=== PATIENT | male | born 1980 | race Hispanic/Latino ===

== ENCOUNTER 2018-06-06 21:43 | Inpatient (IN) | payer MEDICARE ==
--- NOTE | 2018-06-06 23:34 | C.PDOC ---
History Of Present Illness 37 year old male, whose past medical history includes anxiety and polysubstance abuse, is brought to the ED by his brother for psychiatric evaluation. Patient admits he has been using heroin, cocaine and alcohol. After patient's recently left him, he called his brother and expressed suicidal ideation. Patient appears to be agitated and aggressive in the ED. He denies any medical complaints at this time. Patient does not have history of psychiatric admissions. Time Seen by Provider: 06/06/18 22:04 Chief Complaint (Nursing): Psychiatric Evaluation History Per: Patient, Family (brother) History/Exam Limitations: no limitations Onset/Duration Of Symptoms: Hrs Current Symptoms Are (Timing): Still Present Suicide/Self Injury Attempted (Context): None Modifying Factor(s): Alcohol, Narcotics (heroin ), Cocaine Associated Symptoms: Suicidal Thoughts Involuntary Hold By: None Recent travel outside of the [place]: No Additional History Per: Patient Past Medical History Reviewed: Historical Data, Nursing Documentation, Vital Signs Vital Signs: Last Vital Signs Temp 97.9 F 06/06/18 21:47 Pulse 94 H 06/06/18 21:47 Resp 16 06/06/18 21:47 BP 159/110 H 06/06/18 21:47 Pulse Ox 100 06/06/18 21:47 - Medical History PMH: Anxiety, Gastritis, HTN Surgical History: No Surg Hx Family History: States: Unknown Family Hx - Social History Hx Alcohol Use: Yes Hx Substance Use: Yes - Immunization History Hx Tetanus Toxoid Vaccination: No Hx Influenza Vaccination: No Hx Pneumococcal Vaccination: No Review Of Systems Psych: Positive for: Suicidal ideation Physical Exam - Physical Exam Appears: Non-toxic, No Acute Distress, Other (agitated, aggressive, and tense ) Skin: Normal Color, Warm, Dry Head: Atraumatic, Normacephalic Neck: Normal ROM Chest: Symmetrical, No Deformity Extremity: Normal ROM Neurological/Psych: Normal Speech, Normal Cognition ED Course And Treatment O2 Sat by Pulse Oximetry: 100 (on RA) Pulse Ox Interpretation: Normal Medical Decision Making Medical Decision Making: Impression: 37 year old male for psychiatric evaluation of suicidal ideation Plan: * bloodwork * urinalysis * Ativan PO * 1:1 observation * crisis evaluation * reassess and disposition Progress: Bloodwork and urinalysis ordered and reviewed. Ativan PO given. Patient placed on one-to-one ED observation and is pending crisis evaluation. Disposition Counseled Patient/Family Regarding: Studies Performed, Diagnosis - Disposition Disposition: HOME/ ROUTINE Disposition Time: 23:42 Condition: GUARDED Forms: [facility] (Slovak) - Clinical Impression Clinical Impression: Polysubstance abuse - Scribe Statement The provider has reviewed the documentation as recorded by the Scribe (Alison Mendez) Provider Attestation: All medical record entries made by the Scribe were at my direction and personally dictated by me. I have reviewed the chart and agree that the record accurately reflects my personal performance of the history, physical exam, medical decision making, and the department course for this patient. I have also personally directed, reviewed, and agree with the discharge instructions and disposition. Physician Patient Turnover Patient Signed Over To: Jabari Basilio Handoff Comments: pending crisis evaluation and disposition
[2018-06-06 23:43] LABS: URINE BILIRUBIN NEGATIVE (NEGATIVE); URINE BLOOD NEGATIVE (NEGATIVE); URINE CLARITY Clear (Clear); URINE COLOR Yellow (YELLOW); URINE GLUCOSE (UA) NORMAL (Normal); URINE LEUKOCYTE ESTERASE NEG Leu/uL (Negative); URINE PROTEIN NEGATIVE (NEGATIVE); URINE UROBILINOGEN NORMAL mg/dL (0.2-1.0)
[2018-06-06 23:57] LABS: BARBITURATES, UR NEGATIVE (NEGATIVE); BENZODIAZEPINES, UR NEGATIVE (NEGATIVE); PHENCYCLIDINE, UR NEGATIVE (NEGATIVE)
[2018-06-06 23:58] LABS: OPIATES, UR POSITIVE (NEGATIVE)
[2018-06-07 00:48] LABS: BASO % 0.6 % (0.0-2.0); EOS # 0.4 K/uL (0.0-0.7); EOS % 6.4 % (0.0-4.0); HEMOGLOBIN 12.6 g/dL (12.0-18.0); LYMPH # 2.4 K/uL (1.0-4.3); LYMPH % 41.7 % (20.0-40.0); MEAN CELL VOLUME 89.1 fL (80.0-94.0); MEAN CORPUSCULAR HEMOGLOBIN 30.4 pg (27.0-31.0); MEAN CORPUSCULAR HGB CONC 34.1 g/dL (33.0-37.0); MEAN PLATELET VOLUME 6.8 fL (7.2-11.7); MONO # 0.3 K/uL (0.0-0.8); MONO % 5.5 % (0.0-10.0); NEUT # 2.7 K/uL (1.8-7.0); NEUT % 45.8 % (50.0-75.0); NRBC % 0.1 % (0.0-2.0); RBC 4.14 Mil/uL (4.40-5.90); RED CELL DISTRIBUTION WIDTH 13.1 % (11.5-14.5); WHITE BLOOD COUNT 5.8 K/uL (4.8-10.8)
[2018-06-07 01:01] LABS: ALB/GLOB RATIO 1.3 (1.0-2.1); ALBUMIN 3.7 g/dL (3.5-5.0); ALT/SGPT 127 U/L (21-72); AST/SGOT 113 U/L (17-59); BLOOD UREA NITROGEN 16 mg/dL (9-20); CALCIUM 8.2 mg/dl (8.6-10.4); GFR NON-AFRICAN AMERICAN > 60
[2018-06-07 02:54] VITALS: O2SAT 98
--- NOTE | 2018-06-07 06:17 | PCM.BM ---
<Parrish Baptiste Liana - Last Filed: 06/07/18 06:14> Treatment Plan Problems - Problems identified on initial assessmt Altered Health Maintenance Date Initiated: 06/07/18 Time Initiated: 03:00 Assessment reference: NA Status: Active Ineffective Coping Date Initiated: 06/07/18 Time Initiated: 03:00 Assessment reference: NA Status: Active Treatment assets and liabiliti Patient Assests: adapts well, cooperative, ADL independent, negotiates basic needs, cognitively intact Patient Liabilities: relationship conflicts, substance abuse - Milieu Protocol Maintain good personal hygiene: daily Encourage regular showers, daily Remind patient to perform daily oral care, daily Assist patient to perform ADL's Conduct patient checks and document Observation sheet: Q15 minutes Maintain personal safety: every shift Educate patient to report safety concerns to staff, every shift Monitor environment for contraband/sharps Medication safety: Monitor for expected outcome, potential side effects: every shift, Assess barriers to learning: every shift, Assess readiness for medication education: every shift <Rosalina Jose - Last Filed: 06/07/18 13:12> Family Contact Family involvement: Family/SO is involved Family contact: Patient declines to allow family contact at present - Goals for Treatment Patient goals for treatment: "I need to go back to my AA Meetings." Discharge/Continuing Care - Education Needs Education Needs: Patient Medication, Patient Coping Skills - Discharge Discharge Criteria: Tolerates medication w/o severe side effects, Reduction of target symptoms Discharge to:: Home, With Family - Treatment Team Participation Discussed with Family/SO: No Was Patient/Family/SO present at Treatment Team Meeting: Yes <Ebonie Mckoy - Last Filed: 06/09/18 13:26> - Diagnosis (1) MDD (major depressive disorder), recurrent severe, without psychosis Status: Acute Interventions: 06/09/18 13:25 * Assess/adjust medications daily and /or as needed * See patient on an individual basis 7x/week to assess symptoms of depression * Monitor for side effects & effectiveness of medications * (2) Alcohol use disorder, severe, dependence Status: Acute Interventions: 06/09/18 13:26 * Assess 7x/week regarding severity of withdrawal * Educate regarding risks, benefits, side effects and alternatives of medications * Use Motivational Interviewing for abstinence * Use CBT for relapse prevention * Medication management for withdrawal symptoms * Encourage medication assisted treatment *
--- NOTE | 2018-06-07 10:05 | PCM.PSYCH ---
Initial Psychiatric Evaluation - Initial Psychiatric Evaluation Type of Admission: Voluntary Legal Status: Capacity Chief Complaint (in patient's own words): I was feeling depressed and suicidal History of Present Illness and Precipitating Events: Patient is a 37-year-old , unemployed white male who lives at home with his and son, came to the hospital because of depressed mood, alcohol abuse and suicidal ideation. The patient states that he had his first drink at the age of 12 but it became a problem for him starting a couple years ago. The patient states that his longest sobriety was 30 days, until he relapsed 3 days ago. The patient has been drinking 3-5 pints of vodka per day over the last 3 days, with his last drink last night around midnight. The patient also has a history of heroin use, which he started using infrequently 15 years ago. The patient states that he only uses heroin occasionally, with his last use 3 days ago when he used 4 bags IV. The patient denies any cocaine, marijuana, or other drug use but smokes 1 pack per day for a couple years. The patient states that yesterday he consumed more than 3 pints of vodka, became acutely depressed and developed suicidal ideation, so does wake him to the hospital to get help. He has been to detox and rehab a lot and likes to attend AA meetings. The patient states that his grandparents were heavy drinkers and that he witnessed his brother overdose on heroin. The patient sees a psychiatrist, Dr. Sutton, outpatient with his last visit one month ago. The patient is prescribed Vyvanse 70 mg per day to help with his alcohol cravings, with his last dose yesterday morning. The patient is also taking two and a half doses of 8 mg Subutex daily and denies any previous psychiatric hospitalizations. He reports depressed mood, feelings of hopelessness and helplessness, poor sleep and poor appetite. He reports withdrawal symptoms from drinking including shakes, sweating, headaches, anxiety and nausea. He denies any auditory hallucinations or any visual hallucinations or any paranoia. Past Psych History: denies Past Medical History: HTN Family Psych History: denies Past Psychiatric History - Past Psychiatric History Previous Treatment History: Inpatient Pertinent Medical Hx (Current Medical&Sleep Prob, Allergies): Allergies Allergy/AdvReac Type Severity Reaction Status Date / Time No Known Allergies Allergy Verified 06/06/18 21:55 Alprazolam 2 mg PO QID PRN 06/06/18 Esomeprazole Magnesium [Nexium] 40 mg PO DAILY 06/06/18 Losartan Potassium 25 mg PO DAILY 06/06/18 Meloxicam 15 mg PO DAILY 06/06/18 Review of Systems - Review of Systems All systems: reviewed and no additional remarkable complaints except - Psychiatric Psychiatric: Anxiety, Depression, Irritability, Suicidal Ideation Mental Status Examination - Personal Presentation Personal Presentation: Looks stated age - Affect Affect: Constricted, Depressed - Motor Activity Motor Activity: Calm - Reliability in Providing Information Reliability in Providing Information: Fair - Speech Speech: Organized - Mood Mood: Depressed, Anxious - Formal Thought Process Formal Thought Process: No Impairment - Obsessions/Compulsions Obsessions: No Compulsions: No - Cognitive Functions Orientation: Person, Place, Situation, Time Sensorium: Alert Attention/Concentration: Attentive Abstract Thinking: [place] Estimate of Intelligence: Below average Judgement: Imparied, as evidence by: Poor judgement, Imparied, as evidence by: Lack of insight into illness - Risk Risk: Suicidal, Withdrawal, Diminished functioning - Strength & Assets Inventory Strength & Assets Inventory: Family support DSM 5 DX - DSM 5 DSM 5 Diagnosis: Major depressive disorder recurrent severe without psychotic features Alcohol use disorder severe Alcohol withdrawal Opioid use disorder severe on agonist therapy History of ADHD - Recommended/Plan of Treatment Treatment Recommendations and Plan of Treatment: Major depressive disorder recurrent severe without psychotic features Alcohol use disorder severe Alcohol withdrawal Opioid use disorder severe on agonist therapy History of ADHD CBT Psychoeducation Supportive therapy and group therapy Start Ativan taper As needed medications Trazodone 50 mg p.o. nightly Neurontin 300 mg p.o. 3 times daily Wellbutrin 75 mg p.o. daily Subutex 8 mg SL twice a day - Smoking Cessation Smoking Cessation Initiated: No
[2018-06-07] MEDS ORDERED: Aluminum Hydroxide/Magnesium Hydroxide Susp (30 mL) PO PRN (10:13)
[2018-06-07] MEDS: Multiple Vitamins Tab PO SCH (10:44)
[2018-06-07] MEDS: Pantoprazole 40 mg EC Tab PO SCH (10:44)
[2018-06-07] MEDS: Buprenorphine Hydrochloride 8 mg SL SCH (17:53)
[2018-06-08 06:33] VITALS: RESP 20
[2018-06-08] MEDS: Multiple Vitamins Tab PO SCH (10:13)
[2018-06-08] MEDS: Buprenorphine Hydrochloride 8 mg SL SCH ×2 (10:13→18:33)
[2018-06-08] MEDS: Pantoprazole 40 mg EC Tab PO SCH (10:13)
--- NOTE | 2018-06-08 10:27 | PCM.PYCHPN ---
Psychiatric Progress Note - Psychiatric Progress Note Patient seen today, length of contact: 15 min Patient Chief Complaint: I was feeling depressed and suicidal Medication Change: Yes Medical Record Reviewed: Yes Mental Status Examination - Cognitive Function Orientation: Person, Place, Situation, Time Memory: Intact Attention: WNL Concentration: Poor Association: WNL Fund of Knowledge: Poor - Mood Mood: Depressed, Anxious - Affect Affect: Constricted, Depressed - Speech Speech: Soft - Formal Thought Process Formal Thought Process: No Impairment - Suicidal Ideation Suicidal Ideation: No - Homicidal Ideation Homicidal Ideation: No Goal/Treatment Plan - Goal/Treatment Plan Need for Continued Stay: Discharge may exacerbated symptoms, Severe functional impairment Progress Toward Problem(s) and Goals/Treatment Plan: Major depressive disorder recurrent severe without psychotic features Alcohol use disorder severe Alcohol withdrawal Opioid use disorder severe on agonist therapy History of ADHD CBT Psychoeducation Supportive therapy and group therapy Start Ativan taper As needed medications Trazodone 50 mg p.o. nightly Neurontin 300 mg p.o. 3 times daily Wellbutrin 75 mg p.o. daily Subutex 8 mg SL twice a day
[2018-06-09 06:16] VITALS: BP 119/74; PULSE 64; TEMP 98.2
[2018-06-09] MEDS: Pantoprazole 40 mg EC Tab PO SCH (10:35)
[2018-06-09] MEDS: Multiple Vitamins Tab PO SCH (10:35)
[2018-06-09] MEDS: Buprenorphine Hydrochloride 8 mg SL SCH (10:35)
--- NOTE | 2018-06-09 10:37 | PCM.PYCHDC ---
Mental Status Examination - Mental Status Examination Orientation: Person, Place, Situation, Time Memory: Intact Mood: Neutral Affect: Constricted Speech: Soft Attention: WNL Concentration: WNL Association: WNL Fund of Knowledge: WNL Formal Thought Process: No Impairment Description of patient's judgement and insight: good, fair Psychotic Thoughts and Behaviors: denies of AV Suicidal Ideation: No Current Homicidal Ideation?: No Discharge Summary - Discharge Note Reason for Hospitalization: Patient is a 37-year-old , unemployed white male who lives at home with his and son, came to the hospital because of depressed mood, alcohol abuse and suicidal ideation. The patient states that he had his first drink at the age of 12 but it became a problem for him starting a couple years ago. The patient states that his longest sobriety was 30 days, until he relapsed 3 days ago. The patient has been drinking 3-5 pints of vodka per day over the last 3 days, with his last drink last night around midnight. The patient also has a history of heroin use, which he started using infrequently 15 years ago. The patient states that he only uses heroin occasionally, with his last use 3 days ago when he used 4 bags IV. The patient denies any cocaine, marijuana, or other drug use but smokes 1 pack per day for a couple years. The patient states that yesterday he consumed more than 3 pints of vodka, became acutely depressed and developed suicidal ideation, so does wake him to the hospital to get help. He has been to detox and rehab a lot and likes to attend AA meetings. The patient states that his grandparents were heavy drinkers and that he witnessed his brother overdose on heroin. The patient sees a psychiatrist, Dr. Sutton, outpatient with his last visit one month ago. The patient is prescribed Vyvanse 70 mg per day to help with his alcohol cravings, with his last dose yesterday morning. The patient is also taking two and a half doses of 8 mg Subutex daily and denies any previous psychiatric hospitalizations. He reports depressed mood, feelings of hopelessness and helplessness, poor sleep and poor appetite. He reports withdrawal symptoms from drinking including shakes, sweating, headaches, anxiety and nausea. He denies any auditory hallucinations or any visual hallucinations or any paranoia. Consultations:: List each consultation separately and include: 1. Reason for request. 2. Findings. 3. Follow-up Summary of Hospital Course include:: 1. Description of specific treatment plan utilized for patients during their course of treatmen. 2. Summarize the time- course for resolution of acute symptoms and/or regressed behaviors. 3. Describe issues identified and worked on during hospitalization. 4. Describe medication utilized. 5. Describe medical problems identified and treated. 6. Reassessment of suicide risk Summary of Hospital Course: Patient is a 37-year-old , unemployed white male who lives at home with his and son, came to the hospital because of depressed mood, alcohol abuse and suicidal ideation. The patient states that he had his first drink at the age of 12 but it became a problem for him starting a couple years ago. The patient states that his longest sobriety was 30 days, until he relapsed 3 days ago. The patient has been drinking 3-5 pints of vodka per day over the last 3 days, with his last drink last night around midnight. The patient also has a history of heroin use, which he started using infrequently 15 years ago. The patient states that he only uses heroin occasionally, with his last use 3 days ago when he used 4 bags IV. The patient denies any cocaine, marijuana, or other drug use but smokes 1 pack per day for a couple years. The patient states that yesterday he consumed more than 3 pints of vodka, became acutely depressed and developed suicidal ideation, so does wake him to the hospital to get help. He has been to detox and rehab a lot and likes to attend AA meetings. The patient states that his grandparents were heavy drinkers and that he witnessed his brother overdose on heroin. The patient sees a psychiatrist, Dr. Sutton, outpatient with his last visit one month ago. The patient is prescribed Vyvanse 70 mg per day to help with his alcohol cravings, with his last dose yesterday morning. The patient is also taking two and a half doses of 8 mg Subutex daily and denies any previous psychiatric hospitalizations. He reports depressed mood, feelings of hopelessness and helplessness, poor sleep and poor appetite. He reports withdrawal symptoms from drinking including shakes, sweating, headaches, anxiety and nausea. He denies any auditory hallucinations or any visual hallucinations or any paranoia. Past Psych History: denies Past Medical History: HTN Family Psych History: denies - Final Diagnosis (DSM 5) Condition upon Discharge: FAIR DSM 5: Major depressive disorder recurrent severe without psychotic features Alcohol use disorder severe Alcohol withdrawal Opioid use disorder severe on agonist therapy History of ADHD Disposition: HOME/ ROUTINE Follow-up Treatment Plan: Major depressive disorder recurrent severe without psychotic features Alcohol use disorder severe Alcohol withdrawal Opioid use disorder severe on agonist therapy History of ADHD CBT Psychoeducation Supportive therapy and group therapy Start Ativan taper As needed medications Trazodone 50 mg p.o. nightly Neurontin 300 mg p.o. 3 times daily Wellbutrin 75 mg p.o. daily Subutex 8 mg SL twice a day Prescriptions/Medication Reconciliation: buPROPion [Wellbutrin] 75 mg PO DAILY #30 tab Losartan [Cozaar] 25 mg PO DAILY #30 tab traZODone [Desyrel] 50 mg PO HS PRN #30 tab PRN Reason: Insomnia - Smoking Cessation Smoking Cessation Medication prescribed: No - Antipsychotic Medications Pt discharged on 2 or more routine antipsychotic medications: No
== END 2018-06-09 11:00 | disposition home or self-care (01) | DRG 885 ==
LOC: C.ER 21:43 → EEVIPCON 21:43 → C.5E 06-07 02:21
PROC: GZ3ZZZZ Medication Management (ICD-10-PCS; principal; 2018-06-07)
PROC: GZHZZZZ Group Psychotherapy (ICD-10-PCS; 2018-06-07)
PROC: HZ89ZZZ Medication Management for Substance Abuse Treatment, Other Replacement Medication (ICD-10-PCS; 2018-06-07)
PROC: GZ56ZZZ Individual Psychotherapy, Supportive (ICD-10-PCS; 2018-06-07)
DX: F33.2 Major depressive disorder, recurrent severe without psychotic features (principal); F10.239 Alcohol dependence with withdrawal, unspecified; R45.851 Suicidal ideations; F17.210 Nicotine dependence, cigarettes, uncomplicated; F11.21 Opioid dependence, in remission; F41.9 Anxiety disorder, unspecified; F90.9 Attention-deficit hyperactivity disorder, unspecified type; I10 Essential (primary) hypertension

== ENCOUNTER 2018-08-17 13:20 | Inpatient (IN) | payer MEDICARE ==
--- NOTE | 2018-08-17 14:04 | C.PDOC ---
History Of Present Illness 37 year old male with history of alcohol abuse, anxiety, HTN, presents to ED requesting detox from alcohol. He states that he drank 4 pints of liquor today. His only complaint is his chronic back pain and mild nausea. He denies any other drug use, suicidal ideation, homicidal ideation, hallucinations, seizures, tremors, chest pain, SOB, dizziness, vision changes, abdominal pain, vomiting, headache, or any other associated complaints. Time Seen by Provider: 08/17/18 13:30 Chief Complaint (Nursing): Substance Abuse History Per: Patient History/Exam Limitations: no limitations Modifying Factor(s): Alcohol Associated Symptoms: denies: Suicidal Thoughts, Suicidal Plan Past Medical History Reviewed: Historical Data, Nursing Documentation, Vital Signs Vital Signs: Last Vital Signs Temp 98.5 F 08/17/18 13:35 Pulse 107 H 08/17/18 13:35 Resp 20 08/17/18 13:35 BP 141/91 H 08/17/18 13:35 Pulse Ox 95 08/17/18 13:35 - Medical History PMH: Anxiety, Gastritis, HTN (Possibly due to drinking), Seizures (Has seizures related to alcohol use) Denies: Diabetes, Hepatitis (Treated recently), HIV, Sexually Transmitted Disease - [facility] GROUP PSYCHOTHERAPY (06/07/18) INDIVIDUAL PSYCHOTHERAPY, SUPPORTIVE (06/07/18) MEDICATION MANAGEMENT (06/07/18) MEDS MGMT FOR SUBSTANCE ABUSE TREATMENT, OTH REPL MED (06/07/18) Family History: States: Unknown Family Hx - Social History Hx Alcohol Use: Yes (BAL 298) Hx Substance Use: Yes - Immunization History Hx Tetanus Toxoid Vaccination: No Hx Influenza Vaccination: No Hx Pneumococcal Vaccination: No Review Of Systems Constitutional: Negative for: Fever, Chills, Weakness Eyes: Negative for: Vision Change ENT: Negative for: Nose Congestion Cardiovascular: Negative for: Chest Pain, Palpitations, Light Headedness Respiratory: Negative for: Cough, Shortness of Breath Gastrointestinal: Positive for: Nausea. Negative for: Vomiting, Abdominal Pain Musculoskeletal: Positive for: Back Pain (chronic back pain) Skin: Negative for: Rash Neurological: Negative for: Weakness, Numbness, Seizures, Headache, Dizziness Physical Exam - Physical Exam Appears: Non-toxic, No Acute Distress, Other (Appears intoxicated) Skin: Normal Color, Warm, Dry Head: Atraumatic, Normacephalic Eye(s): bilateral: Normal Inspection, PERRL, EOMI Nose: Normal Oral Mucosa: Moist Neck: Normal ROM, Supple Chest: Symmetrical, No Deformity Cardiovascular: Rhythm Regular, No Murmur Respiratory: Normal Breath Sounds, No Accessory Muscle Use Gastrointestinal/Abdominal: Soft, No Tenderness Back: No CVA Tenderness, Other (old surgical scar over the mid-lower back, tender to palpation; no signs of infection) Extremity: Normal ROM, Capillary Refill (<2 seconds) Extremity: Bilateral: Atraumatic, Normal Color And Temperature Pulses: Left Radial: Normal, Right Radial: Normal Neurological/Psych: Oriented x3, Normal Speech, Normal Motor, Normal Sensation Gait: Steady ED Course And Treatment - Laboratory Results Result Diagrams: 08/17/18 14:35 08/17/18 14:35 O2 Sat by Pulse Oximetry: 95 (RA) Medical Decision Making Medical Decision Making: Initial Plan: Bloodwork with alcohol, acetaminophen, salicylate levels UA UDS 1720 Patient vomiting, requesting librium. Discussed with ED attending Dr. Imm. Chata mora and Librium ordered. 1730 Bloodwork, UA, UDS reviewed Patient is clinically sober and medically stable for detox admission 1745 Advised by crisis team that patient is to be admitted to detox unit under Dr. Rowe with diagnosis of alcohol use disorder, severe Disposition - Disposition Disposition: HOSPITALIZED Disposition Time: 17:30 Condition: STABLE - Clinical Impression Clinical Impression: Alcohol use disorder, severe, dependence - PA / CAN SEALER / Resident Statement MD/DO has reviewed & agrees with the documentation as recorded. (Gretel Merchant) - Scribe Statement The provider has reviewed the documentation as recorded by the Scribe (Gretel Merchant) All medical record entries made by the Scribe were at my direction and personally dictated by me. I have reviewed the chart and agree that the record accurately reflects my personal performance of the history, physical exam, medical decision making, and the department course for this patient. I have also personally directed, reviewed, and agree with the discharge instructions and disposition.
[2018-08-17 14:47] LABS: BASO # 0.1 K/uL (0.0-0.2); BASO % 0.7 % (0.0-2.0); EOS # 0.2 K/uL (0.0-0.7); EOS % 2.5 % (0.0-4.0); HEMOGLOBIN 14.2 g/dL (12.0-18.0); LYMPH # 2.5 K/uL (1.0-4.3); LYMPH % 29.1 % (20.0-40.0); MEAN CORPUSCULAR HEMOGLOBIN 30.8 pg (27.0-31.0); MEAN CORPUSCULAR HGB CONC 33.1 g/dL (33.0-37.0); MEAN PLATELET VOLUME 7.4 fL (7.2-11.7); MONO # 0.5 K/uL (0.0-0.8); MONO % 5.3 % (0.0-10.0); NEUT # 5.4 K/uL (1.8-7.0); NEUT % 62.4 % (50.0-75.0); NRBC % 0.1 % (0.0-2.0); RBC 4.59 Mil/uL (4.40-5.90); RED CELL DISTRIBUTION WIDTH 13.9 % (11.5-14.5); WHITE BLOOD COUNT 8.6 K/uL (4.8-10.8)
[2018-08-17 14:49] LABS: MEAN CELL VOLUME 93.1 fL (80.0-94.0)
[2018-08-17 15:06] LABS: ACETAMINOPHEN < 10.0 ug/mL (10.0-30.0); ALB/GLOB RATIO 1.4 (1.0-2.1); ALBUMIN 4.1 g/dL (3.5-5.0); ALT/SGPT 75 U/L (21-72); AST/SGOT 114 U/L (17-59); BLOOD UREA NITROGEN 7 mg/dL (9-20); CALCIUM 8.2 mg/dl (8.6-10.4); GFR NON-AFRICAN AMERICAN > 60; SALICYLATE < 1.0 mg/dL 1
[2018-08-17 15:08] LABS: SQUAMOUS EPITHIAL < 1 /hpf (0-5); URINE BILIRUBIN NEGATIVE (NEGATIVE); URINE BLOOD NEGATIVE (NEGATIVE); URINE CLARITY Clear (Clear); URINE COLOR Yellow (YELLOW); URINE GLUCOSE (UA) NORMAL (Normal); URINE LEUKOCYTE ESTERASE NEG Leu/uL (Negative); URINE PROTEIN NEGATIVE (NEGATIVE); URINE UROBILINOGEN NORMAL mg/dL (0.2-1.0)
[2018-08-17 15:22] LABS: BARBITURATES, UR NEGATIVE (NEGATIVE); BENZODIAZEPINES, UR NEGATIVE (NEGATIVE); PHENCYCLIDINE, UR NEGATIVE (NEGATIVE)
[2018-08-17 15:41] LABS: OPIATES, UR POSITIVE (NEGATIVE)
--- NOTE | 2018-08-17 18:18 | PCM.BM ---
<Michael Juarez - Last Filed: 08/17/18 18:15> Treatment Plan Problems - Problems identified on initial assessmt Knowledge Deficit: Alcohol use Date Initiated: 08/17/18 Time Initiated: 07:00 Assessment reference: NA Status: Active Anxiety r/t substance use Date Initiated: 08/17/18 Time Initiated: 07:00 Assessment reference: NA Status: Active Denial Date Initiated: 08/17/18 Time Initiated: 07:00 Assessment reference: NA Status: Active Treatment assets and liabiliti Patient Assests: adapts well, cooperative, ADL independent, negotiates basic needs, cognitively intact Patient Liabilities: substance abuse - Milieu Protocol Maintain good personal hygiene: daily Encourage regular showers, daily Remind patient to perform daily oral care, daily Assist patient to perform ADL's Maintain personal safety: every shift Educate patient to report safety concerns to staff, every shift Monitor environment for contraband/sharps Medication safety: Monitor for expected outcome, potential side effects: every shift, Assess barriers to learning: every shift, Assess readiness for medication education: every shift <Quynh Rowe - Last Filed: 08/19/18 12:08> - Diagnosis (1) Alcohol use disorder, severe, dependence Status: Acute Interventions: 08/18/18 12:07 * Assess 7x/week regarding severity of withdrawal * Educate regarding risks, benefits, side effects and alternatives of medications * Use Motivational Interviewing for abstinence * Use CBT for relapse prevention * Medication management for withdrawal symptoms * Encourage medication assisted treatment *
--- NOTE | 2018-08-18 12:08 | PCM.PSYCH ---
Initial Psychiatric Evaluation - Initial Psychiatric Evaluation Type of Admission: Voluntary Legal Status: Capacity Chief Complaint (in patient's own words): "I need to stop drinking." History of Present Illness and Precipitating Events: Patient is a 37 year old male who is , has a 4 month old child, lives with his and child in a house, and has been on disability for 5 years due to a back injury. He presented to the ED on 08/17 and was admitted to the [facility] detox unit for alcohol detox. At that time his BAL was 356 and his UDS was positive for opioids. Patient is experiencing shakiness, anxiety, nausea, vomiting, and headaches. He has been drinking 5-6 pints of liquor daily for the last 5-6 days. He began drinking at the age of 12 but his drinking became worse over the last 5 years. He explains that he would drink daily for months at a time, having about 3 beers a day, and hide it from his . Other times during that 5 year period he would be clean for months. His last drink was on 08/17 when he had 4 pints of liquor prior to his admission here. His longest time sober was 60 days after his time at the [facility] psychiatric unit but he ended up relapsing. He had a seizure due to alcohol withdrawal but doesnt remember when it occurred but within the last couple of months he believes. He has been to detox units for alcohol 3 times in the past, two of which were here at [facility]. He has been to rehabilitation units for alcohol 5-6 times in the past at [facility], [place], and [facility] [place] [facility]. He has a history of heroin use in the past but was clean for the last 3 years until he relapsed on 08/15 while drinking. He comments that he only inhaled 1 bag. Prior to his [address] he used to do a couple of bundles of heroin daily for several years. He denies ever overdosing on heroin. He is currently prescribed subutex 8mg TID, which he last took on 08/17. He has been to multiple detox and rehabilitation units in the past for heroin. As per [place] M[employer] INSPECTOR, he was indeed prescribed not only subutex 32 mg (3-4 tablets a day) but also 8 mg Xanax (120 of the 2 mg tabs). However, he did not mention that and his urine is negative. He was also given Vyvanse 70 mg (??) all by the same dr. He is likely overusing or selling some of these, as evidenced by negative urine for benzos. He has smoked 1.5 packs per day for the last 20 years, but quit 4 weeks ago. He currently denies suicidal ideations, homicidal ideations, visual hallucinations, and auditory hallucinations. PMHx: Hepatitis C, chronic back pain, gastritis, HTN, hypothyroidism PsychHx: Anxiety PsychHospitalizations: 06/07/18 for alcohol detox, depression, and suicidal ideation FMPsychHx: denies Medications: Subutex 8mg TID, Nexium, levothyroxin Allergies: Naloxone within suboxone -comments that he gets sick and starts vomiting while taking it even when sober. However, it sounded like precipitated wdw Current Medications: Active Medications Generic Name Dose Route Start Last Admin Trade Name Freq PRN Reason Stop Dose Admin Buprenorphine HCl 8 mg 08/18/18 14:00 Subutex SL TID RAÚL Clonidine HCl 0.1 mg 08/17/18 18:15 08/17/18 18:50 Catapres PO 0.1 mg Q6 PRN Administration Symptoms of alcohol withdrawl Dicyclomine HCl 10 mg 08/17/18 19:43 Bentyl PO Q6 PRN Muscle spasm Gabapentin 400 mg 08/18/18 14:00 Neurontin PO TID RAÚL Hydroxyzine HCl 25 mg 08/17/18 18:15 08/17/18 18:49 Atarax PO 25 mg Q6 PRN Administration Anxiety Ibuprofen 600 mg 08/17/18 19:48 Motrin Tab PO Q6 PRN Pain, moderate (4-7) Lorazepam 1 mg 08/17/18 18:56 Ativan PO Q4H PRN Symptoms of alcohol withdrawl Lorazepam 2 mg 08/18/18 11:59 Ativan PO 08/22/18 09:59 Q6H RAÚL Taper Trazodone HCl 50 mg 08/17/18 22:00 Desyrel PO HS PRN Insomnia Past Psychiatric History - Past Psychiatric History Previous Treatment History: Inpatient Pertinent Medical Hx (Current Medical&Sleep Prob, Allergies): Allergies Allergy/AdvReac Type Severity Reaction Status Date / Time No Known Allergies Allergy Verified 06/06/18 21:55 Esomeprazole Magnesium [Nexium] 40 mg PO DAILY 06/06/18 Losartan [Cozaar] 25 mg PO DAILY #30 tab 06/09/18 buPROPion [Wellbutrin] 75 mg PO DAILY #30 tab 06/09/18 Review of Systems - Psychiatric Psychiatric: Abnormal Sleep Pattern, Anxiety, Behavioral Changes, Difficulty Concentrating, Irritability, Mood Swings, Panic Attacks. absent: Anhedonia, Auditory Hallucinations, Depression, Homicidal Ideation, Suicidal Ideation (not now but recently positive), Visual Hallucinations Mental Status Examination - Personal Presentation Personal Presentation: Looks stated age (evasive, guarded, splitting already) - Affect Affect: Broad - Motor Activity Motor Activity: Calm - Reliability in Providing Information Reliability in Providing Information: Good - Speech Speech: Organized - Mood Mood: Anxious - Formal Thought Process Formal Thought Process: No Impairment - Obsessions/Compulsions Obsessions: No Compulsions: No - Cognitive Functions Orientation: Person, Place, Situation, Time Sensorium: Alert Attention/Concentration: Attentive Abstract Thinking: Hayes Estimate of Intelligence: Average Judgement: Intact, as evidence by: Insight regarding need for hospitalization Memory: Recent intact, as evidence by: Ability to recall events of the day, Remote intact, as evidenced by: Ability to recall historical events - Risk Risk: Seizure, Withdrawal, Diminished functioning - Strength & Assets Inventory Strength & Assets Inventory: Cooperative - Limitations Limitations: Other DSM 5 DX - DSM 5 DSM 5 Diagnosis: Alcohol withdrawal Alcohol use disorder, severe Opioid use d/o - severe, on maintenance Tobacco use disorder, moderate Generalized Anxiety disorder Major depression, unspecified Borderline/Narcissistic Personality disorder ADHD by hx - Recommended/Plan of Treatment Treatment Recommendations and Plan of Treatment: Taper with Ativan - liver enzymes are elevated Resume subutex (he already has opioid wdw sx) Gabapentin for augmentation As needed medications Patient is to continue home meds All risks, benefits and alternatives of the meds discussed, and the pt agreed and understood. Attend groups and activities Supportive therapy and psychoeducation HI for abstinence CBT for relapse prevention Encourage MAT Refer to rehab or IOP, and self-help groups Teach healthy lifestyle methods, i.e. diet, exercise, meditation Smoking cessation with HI Nicotine patch if needed 34 min Projected ELOS: 4-5 days Prognosis: Good, with treatment - Smoking Cessation Smoking Cessation Initiated: Yes
[2018-08-18] MEDS: Buprenorphine Hydrochloride 8 mg SL SCH ×2 (13:16→17:38)
--- NOTE | 2018-08-19 10:02 | PCM.PYCHDC ---
Mental Status Examination - Mental Status Examination Orientation: Person Discharge Summary - Discharge Note Consultations:: List each consultation separately and include: 1. Reason for request. 2. Findings. 3. Follow-up Summary of Hospital Course include:: 1. Description of specific treatment plan utilized for patients during their course of treatmen. 2. Summarize the time- course for resolution of acute symptoms and/or regressed behaviors. 3. Describe issues identified and worked on during hospitalization. 4. Describe medication utilized. 5. Describe medical problems identified and treated. 6. Reassessment of suicide risk Summary of Hospital Course: Patient is a 37 year old male who is , has a 4 month old child, lives with his and child in a house, and has been on disability for 5 years due to a back injury. He presented to the ED on 08/17 and was admitted to the [facility] detox unit for alcohol detox. At that time his BAL was 356 and his UDS was positive for opioids. Patient is experiencing shakiness, anxiety, nausea, vomiting, and headaches. He has been drinking 5-6 pints of liquor daily for the last 5-6 days. He began drinking at the age of 12 but his drinking became worse over the last 5 years. He explains that he would drink daily for months at a time, having about 3 beers a day, and hide it from his . Other times during that 5 year period he would be clean for months. His last drink was on 08/17 when he had 4 pints of liquor prior to his admission here. His longest time sober was 60 days after his time at the [facility] psychiatric unit but he ended up relapsing. He had a seizure due to alcohol withdrawal but doesnt remember when it occurred but within the last couple of months he believes. He has been to detox units for alcohol 3 times in the past, two of which were here at [facility]. He has been to rehabilitation units for alcohol 5-6 times in the past at [facility], [place], and [facility]. He has a history of heroin use in the past but was clean for the last 3 years until he relapsed on 08/15 while drinking. He comments that he only inhaled 1 bag. Prior to his [address] he used to do a couple of bundles of heroin daily for several years. He denies ever overdosing on heroin. He is currently prescribed subutex 8mg TID, which he last took on 08/17. He has been to multiple detox and rehabilitation units in the past for heroin. As per [employer] SCIENTIST, he was indeed prescribed not only subutex 32 mg (3-4 tablets a day) but also 8 mg Xanax (120 of the 2 mg tabs). However, he did not mention that and his urine is negative. He was also given Vyvanse 70 mg (??) all by the same dr. He is likely overusing or selling some of these, as evidenced by negative urine for benzos. He has smoked 1.5 packs per day for the last 20 years, but quit 4 weeks ago. He currently denies suicidal ideations, homicidal ideations, visual hallucinations, and auditory hallucinations. PMHx: Hepatitis C, chronic back pain, gastritis, HTN, hypothyroidism PsychHx: Anxiety PsychHospitalizations: 06/07/18 for alcohol detox, depression, and suicidal ideation FMPsychHx: denies Medications: Subutex 8mg TID, Nexium, levothyroxin Allergies: Naloxone within suboxone -comments that he gets sick and starts vomiting while taking it even when sober. However, it sounded like precipitated wdw He AMA'ed despite risks of leaving AMA discussd. He also claims he "throws out" the extremely high dose of xanax he is given monthly (8 mg), which doesn't make sense,. - Final Diagnosis (DSM 5) Condition upon Discharge: STABLE Disposition: HOME/ ROUTINE Follow-up Treatment Plan: Taper with Ativan - liver enzymes are elevated Resume subutex (he already has opioid wdw sx) Gabapentin for augmentation As needed medications Patient is to continue home meds All risks, benefits and alternatives of the meds discussed, and the pt agreed and understood. Attend groups and activities Supportive therapy and psychoeducation PR for abstinence CBT for relapse prevention Encourage MAT Refer to rehab or IOP, and self-help groups Teach healthy lifestyle methods, i.e. diet, exercise, meditation Smoking cessation with PR Nicotine patch if needed 34 min
[2018-08-19] MEDS: Buprenorphine Hydrochloride 8 mg SL SCH (10:37)
[2018-08-19 11:59] VITALS: BP 137/91; PULSE 91; RESP 18; TEMP 97.7; O2SAT 96
== END 2018-08-19 10:20 | disposition left against medical advice (07) | DRG 894 ==
LOC: C.ER 13:20 → C.7D 17:46
PROVIDERS: ADMIT Psychiatry & Neurology Psychiatry; ATTEND Psychiatry & Neurology Psychiatry
PROC: HZ2ZZZZ Detoxification Services for Substance Abuse Treatment (ICD-10-PCS; principal; 2018-08-17)
PROC: HZ52ZZZ Individual Psychotherapy for Substance Abuse Treatment, Cognitive-Behavioral (ICD-10-PCS; 2018-08-17)
PROC: HZ59ZZZ Individual Psychotherapy for Substance Abuse Treatment, Supportive (ICD-10-PCS; 2018-08-17)
PROC: HZ56ZZZ Individual Psychotherapy for Substance Abuse Treatment, Psychoeducation (ICD-10-PCS; 2018-08-17)
PROC: HZ42ZZZ Group Counseling for Substance Abuse Treatment, Cognitive-Behavioral (ICD-10-PCS; 2018-08-17)
PROC: HZ46ZZZ Group Counseling for Substance Abuse Treatment, Psychoeducation (ICD-10-PCS; 2018-08-17)
PROC: GZHZZZZ Group Psychotherapy (ICD-10-PCS; 2018-08-17)
PROC: GZ58ZZZ Individual Psychotherapy, Cognitive-Behavioral (ICD-10-PCS; 2018-08-17)
PROC: GZ56ZZZ Individual Psychotherapy, Supportive (ICD-10-PCS; 2018-08-17)
DX: F10.230 Alcohol dependence with withdrawal, uncomplicated (principal); F11.23 Opioid dependence with withdrawal; Y90.8 Blood alcohol level of 240 mg/100 ml or more; F41.1 Generalized anxiety disorder; F32.9 Major depressive disorder, single episode, unspecified; F60.3 Borderline personality disorder; F90.9 Attention-deficit hyperactivity disorder, unspecified type; F60.81 Narcissistic personality disorder; I10 Essential (primary) hypertension; G89.29 Other chronic pain; M54.9 Dorsalgia, unspecified; Z86.19 Personal history of other infectious and parasitic diseases; E03.9 Hypothyroidism, unspecified; F17.210 Nicotine dependence, cigarettes, uncomplicated